=== PATIENT | female | born 1940 | race Caucasian/White ===

== ENCOUNTER 2017-04-20 07:33 | Emergency (ER) | payer MEDICARE, MEDICAID ==
[~2017-04-20] VITALS: Ht 157.5 cm; Wt 55.0 kg
[~2017-04-20 07:33] MED LIST: IBUP100T20
[2017-04-20] MEDS ORDERED: ACETAMINOPHEN 325MG TABLET PO ONE (10:15)
[2017-04-20 10:18] VITALS: BP 117/6
== END 2017-04-20 11:54 | disposition home or self-care (01) ==
LOC: ER 08:15
DX: M17.11 Unilateral primary osteoarthritis, right knee (principal); Z98.890 Other specified postprocedural states
CPT/HCPCS: 73562; 99284

== ENCOUNTER 2019-11-11 10:55 | Emergency (ER) | payer MEDICARE, MEDICAID ==
[~2019-11-11] VITALS: Ht 147.3 cm; Wt 53.0 kg
[2019-11-11 11:06] VITALS: BP 119/77
[2019-11-11] MEDS ORDERED: DIPHENHYDRAMINE 25MG CAPSULE PO ONE (11:30)
== END 2019-11-11 12:07 | disposition home or self-care (01) ==
LOC: ER 10:55
DX: R21 Rash and other nonspecific skin eruption (principal); L29.9 Pruritus, unspecified
CPT/HCPCS: 99282; Q0163